=== PATIENT | male | born 2000 | race Caucasian/White ===

== ENCOUNTER 2021-08-23 09:49 | Emergency (ER) | payer OTHER ==
--- NOTE | 2021-08-23 10:44 | ED Physician Documentation ---
PD HPI OPHTHO - Stated complaint Stated Complaint: EYE PX - Chief complaint Chief Complaint: Heent - History obtained from History obtained from: Patient - Additional information Additional information: Patient comes emergency department chief complaint of eye irritation after chemical splashed in the eye. Patient states he was using a synthetic solution at work and it splashed in his eyes. He states there was an eyewash station there and that he spent 15 minutes rinsing his eyes. Patient does not wear contacts or glasses. He states his vision is normal. The incident happened about an hour ago and patient states he still just feels some slight irritation. No redness or drainage. His [employer] at the [employer] asked him to come here. No other complaints at this time. Review of Systems Ten Systems: 10 systems reviewed and negative Constitutional: reports: Reviewed and negative Eyes: reports: Irritation Ears: reports: Reviewed and negative Nose: reports: Reviewed and negative Throat: reports: Reviewed and negative Cardiac: reports: Reviewed and negative Respiratory: reports: Reviewed and negative GI: reports: Reviewed and negative : reports: Reviewed and negative Skin: reports: Reviewed and negative Musculoskeletal: reports: Reviewed and negative Neurologic: reports: Reviewed and negative Psychiatric: reports: Reviewed and negative Endocrine: reports: Reviewed and negative Immunocompromised: reports: Reviewed and negative PD PAST MEDICAL HISTORY - Present Medications Home Medications: Ambulatory Orders Medication Instructions Recorded Confirmed No Known Home Medications 08/23/21 08/23/21 - Allergies Allergies/Adverse Reactions: Allergies Allergy/AdvReac Type Severity Reaction Status Date / Time amoxicillin Allergy Anaphylaxis Verified 08/23/21 09:54 - Social History Does the pt smoke?: No Smoking Status: Never smoker PD ED PE NORMAL - Vitals Vital signs reviewed: Yes - General General: Alert and oriented X 3, No acute distress, Well developed/nourished - HEENT HEENT: Atraumatic, PERRL, EOMI, Moist mucous membranes, Other (No conjunctival injection.) - Neck Neck: Supple, no meningeal sign - Respiratory Respiratory: No respiratory distress - Derm Derm: Warm and dry - Extremities Extremities: No deformity - Neuro Neuro: Alert and oriented X 3 - Psych Psych: Normal mood, Normal affect Results - Vitals Vitals: Oxygen O2 Source Room air PD MEDICAL DECISION MAKING - ED course Complexity details: reviewed results, re-evaluated patient, considered differential, d/w patient ED course: His eyes were very well-appearingAnd he did not have any conjunctival injection or drainage. Fluorescein exam was unremarkable. He was found to have a normal pH. She does not wear contact lenses. I have advised him that he may use saline drops if needed, but otherwise, no specific intervention. We have discussed the usual indications for return. Departure - Departure Disposition: 01 Home, Self Care Clinical Impression: Chemical exposure of eye Condition: Stable Instructions: ED Chemical Conjunctivitis Comments: Your eye looks quite good at this point, am it appears that by washing immediately on the job site, you got all or the vast majority of the chemical you were exposed to out of your eye. There is no evidence of ongoing inflammation, visual compromise, or particulate matter/scratches. At this point in time, you may carry on his usual. You should not put anything into your eye as far as contact lenses for at least 24 hours. Please remember to wear safety goggles when you are using any chemicals at work that may splash. Discharge Date/Time: 08/23/21 10:49
[2021-08-23 10:49] VITALS: BP 130/70
== END 2021-08-23 10:49 | disposition home or self-care (01) ==
LOC: EDSEX → ED 09:49
DX: S05.90XA Unspecified injury of unspecified eye and orbit, initial encounter (principal); Z77.098 Contact with and (suspected) exposure to other hazardous, chiefly nonmedicinal, chemicals; X58.XXXA Exposure to other specified factors, initial encounter
CPT/HCPCS: 99281; 99282

== ENCOUNTER 2023-05-19 01:33 | Outpatient (CLI) | payer SELFPAY | END 2023-05-19 01:34 | disposition critical access hospital (66) | LOC: EMS 01:33 | DX: R45.851 Suicidal ideations (principal) | CPT/HCPCS: A0425; A0429 ==

== ENCOUNTER 2023-05-19 01:51 | Emergency (ER) | payer OTHER ==
--- NOTE | 2023-05-19 01:53 | ED Physician Documentation ---
PD HPI MHE - Stated complaint Stated Complaint: SI - History obtained from History obtained from: Patient - History of Present Illness Primary symptom: Suicidal ideation, Depression Contributing factors: Family - Additional information Additional information: HPI from patient. JIMI. Patient called 911 tonight due to feeling depressed and having suicidal thoughts. Patient indicates to me that he has been feeling increasingly depressed and has had fleeting thoughts of killing himself by jumping off [place], but tonight he got into an argument with his spouse, causing acute worsening of suicidal thoughts. [facility] and [facility] advised him to call 911. Review of Systems Cardiac: reports: Reviewed and negative Respiratory: reports: Reviewed and negative GI: reports: Reviewed and negative Psychiatric: reports: Depressed, Suicidal, Anxiety. denies: Homicidal, Hallucinations, Delusions PD PAST MEDICAL HISTORY - Past Medical History Past Medical History: No - Present Medications Home Medications: Ambulatory Orders Medication Instructions Recorded Confirmed No Known Home Medications 08/23/21 08/23/21 - Allergies Allergies/Adverse Reactions: Allergies Allergy/AdvReac Type Severity Reaction Status Date / Time amoxicillin Allergy Anaphylaxis Verified 05/19/23 02:01 - Social History Does the pt smoke?: No Smoking Status: Never smoker PD ED PE NORMAL - Vitals Vital signs reviewed: Yes - General General: Alert and oriented X 3, Well developed/nourished, Other (tearful, anx ious) - Cardiac Cardiac: RRR, No murmur - Respiratory Respiratory: No respiratory distress, Clear bilaterally - Abdomen Abdomen: Soft, Non tender - Neuro Neuro: Alert and oriented X 3 Eye Opening: Spontaneous Motor: Obeys Commands Verbal: Oriented GCS Score: 15 PD ED PE EXPANDED - Psych Psych: Depressed, Suicidal, Tearful, Anxious Results - Vitals Vitals: Vital Signs - 24 hr 05/19/23 05/19/23 01:58 15:19 Temperature 37.1 C 37.1 C Heart Rate 88 79 Respiratory 18 15 Rate Blood Pressure 130/75 132/73 H O2 Saturation 97 96 Oxygen O2 Source Room air - Labs Labs: Laboratory Tests 05/19/23 05/19/23 05/19/23 02:14 02:14 02:14 WBC 8.8 RBC 5.78 Hgb 15.0 Hct 46.1 MCV 79.8 L MCH 26.0 L MCHC 32.5 RDW 13.6 Plt Count 290 MPV 10.9 Neut # (Auto) 4.6 Lymph # (Auto) 3.1 [place] # (Auto) 0.9 Eos # (Auto) 0.1 Baso # (Auto) 0.0 Absolute Nucleated RBC 0.00 Nucleated RBC % 0.0 Sodium 139 Potassium 3.4 L Chloride 104 Carbon Dioxide 23 Anion Gap 12.0 BUN 8 Creatinine 1.2 Estimated GFR (MDRD) 76 L Glucose 96 Calcium 9.4 Total Bilirubin 0.5 AST 47 H ALT 95 H Alkaline Phosphatase 53 Total Protein 7.2 Albumin 4.7 Globulin 2.5 Albumin/Globulin Ratio 1.9 Lipase 12 TSH 1.62 Urine Color Urine Clarity Urine pH Ur Specific [place] Urine Protein Urine Glucose (UA) Urine Ketones Urine Occult Blood Urine Nitrite Urine Bilirubin Urine Urobilinogen Ur Leukocyte Esterase Ur Microscopic Review Urine Culture Comments Salicylates < 1.5 Urine Opiates Screen Ur Oxycodone Screen Urine Methadone Screen Ur Propoxyphene Screen Acetaminophen < 0 L Ur Barbiturates Screen Ur Tricyclics Screen Ur Phencyclidine Scrn Ur Amphetamine Screen U Methamphetamines Scrn U Benzodiazepines Scrn Urine Cocaine Screen U Cannabinoids Screen Ethyl Alcohol 59.3 SARS-CoV-2 (PCR) 05/19/23 05/19/23 02:20 10:00 WBC RBC Hgb Hct MCV MCH MCHC RDW Plt Count MPV Neut # (Auto) Lymph # (Auto) [place] # (Auto) Eos # (Auto) Baso # (Auto) Absolute Nucleated RBC Nucleated RBC % Sodium Potassium Chloride Carbon Dioxide Anion Gap BUN Creatinine Estimated GFR (MDRD) Glucose Calcium Total Bilirubin AST ALT Alkaline Phosphatase Total Protein Albumin Globulin Albumin/Globulin Ratio Lipase TSH Urine Color YELLOW Urine Clarity CLEAR Urine pH 6.0 Ur Specific [place] 1.010 Urine Protein TRACE Urine Glucose (UA) NEGATIVE Urine Ketones NEGATIVE Urine Occult Blood NEGATIVE Urine Nitrite NEGATIVE Urine Bilirubin NEGATIVE Urine Urobilinogen 0.2 (NORMAL) Ur Leukocyte Esterase NEGATIVE Ur Microscopic Review NOT INDICATED Urine Culture Comments NOT INDICATED Salicylates Urine Opiates Screen NEGATIVE Ur Oxycodone Screen NEGATIVE Urine Methadone Screen NEGATIVE Ur Propoxyphene Screen NEGATIVE Acetaminophen Ur Barbiturates Screen NEGATIVE Ur Tricyclics Screen NEGATIVE Ur Phencyclidine Scrn NEGATIVE Ur Amphetamine Screen NEGATIVE U Methamphetamines Scrn NEGATIVE U Benzodiazepines Scrn NEGATIVE Urine Cocaine Screen NEGATIVE U Cannabinoids Screen NEGATIVE Ethyl Alcohol SARS-CoV-2 (PCR) NOT DETECTED PD Medical Decision Making - ED course Complexity details: reviewed results, re-evaluated patient, considered differential, d/w patient ED course: Brought in by ambulance after he called 911 due to feeling depressed and having suicidal ideation with plan to [place]. No concerning findings on blood tests/urinalysis, patient is medically cleared for a telepsychiatric consult. Telepsychiatrist evaluated patient in the emergency department and recommends inpatient (voluntary) treatment. Per telepsychiatric recommendations, orders for PRN lorazepam and trazodone are entered. Additionally, the telepsychiatrist ordered daily sertraline. Care of patient is turned over to the oncoming emergency department physician (Dr. Mackey) at the end of my shift, pending transfer to appropriate facility for inpatient mental health treatment. Departure - Departure Disposition: 65 Psych Hosp/Unit DC/Xfer Clinical Impression: Suicidal ideation Condition: Good Forms: PCP List
[2023-05-19 02:19] LABS: BASOPHILS % (AUTO) 0.2 %; EOSINOPHILS # (AUTO) 0.1 10^3/uL (0.0-0.7); EOSINOPHILS % (AUTO) 0.9 %; HCT - HEMATOCRIT 46.1 % (42.0-52.0); LYMPHOCYTES # (AUTO) 3.1 10^3/uL (1.5-3.5); LYMPHOCYTES % (AUTO) 35.3 %; MEAN CORPUSCULAR HGB CONC 32.5 g/dL (32.0-36.0); MEAN CORPUSCULAR VOLUME 79.8 fL (80.0-94.0); MEAN PLATELET VOLUME 10.9 fL (7.4-11.4); MONOCYTES # (AUTO) 0.9 10^3/uL (0.0-1.0); MONOCYTES % (AUTO) 10.5 %; NEUTROPHILS # (AUTO) 4.6 10^3/uL (1.5-6.6); NEUTROPHILS % (AUTO) 52.9 %; PLT - PLATELET COUNT 290 10^3/uL (130-450); RED BLOOD COUNT 5.78 10^6/uL (4.70-6.10); RED CELL DISTRIBUTION WIDTH 13.6 % (12.0-15.0); WHITE BLOOD COUNT 8.8 x10^3/uL (4.8-10.8)
[2023-05-19 02:36] LABS: ALBUMIN 4.7 g/dL (3.2-5.5); ALBUMIN/GLOBULIN RATIO 1.9 (1.0-2.2); ALKALINE PHOSPHATASE 53 IU/L (42-121); ALT ALANINE AMINOTRANSFERASE 95 IU/L (10-60); AST ASPARTATE AMINOTRANSFERASE 47 IU/L (10-42); BILIRUBIN,TOTAL 0.5 mg/dL (0.2-1.0); BUN - BLOOD UREA NITROGEN 8 mg/dL (6-20); CALCIUM 9.4 mg/dL (8.5-10.3); CARBON DIOXIDE - CO2 23 mmol/L (21-32); CHLORIDE 104 mmol/L (101-111); CREATININE 1.2 mg/dL (0.6-1.3); ETOH - ETHANOL 59.3 mg/dL; GFR - MDRD 76 (>89); GLUCOSE 96 mg/dL (74-104); LIPASE 12 U/L (11-82); POTASSIUM 3.4 mmol/L (3.5-4.5); SODIUM 139 mmol/L (135-145); TOTAL PROTEIN 7.2 g/dL (6.4-8.9)
[2023-05-19 02:38] LABS: ACETAMINOPHEN < 0 ug/mL (10-30); SALICYLATE < 1.5 mg/dL
[2023-05-19 02:56] LABS: MUDS CUTOFF CONCENTRATIONS CUTOFF CONC BELOW:
[2023-05-19 02:57] LABS: BILIRUBIN,URINE NEGATIVE (NEGATIVE); GLUCOSE, URINE (UA) NEGATIVE (NEGATIVE); KETONES,URINE (UA) NEGATIVE (NEGATIVE); LEUKOCYTE ESTERASE, URINE NEGATIVE (NEGATIVE); NITRITE,URINE NEGATIVE (NEGATIVE); OCCULT BLOOD,URINE NEGATIVE (NEGATIVE); PROTEIN,URINE TRACE mg/dL (NEGATIVE); UROBILINOGEN,URINE 0.2 (NORMAL) E.U./dL (NORMAL)
[2023-05-19 03:03] LABS: CLARITY,URINE CLEAR (CLEAR)
[2023-05-19 03:07] LABS: AMPHETAMINE SCREEN,URINE NEGATIVE (NEGATIVE); BARBITURATE SCREEN,UR NEGATIVE (NEGATIVE); BENZODIAZEPINES SCREEN, URINE NEGATIVE (NEGATIVE); COCAINE SCREEN URINE NEGATIVE (NEGATIVE); METHADONE SCREEN, URINE NEGATIVE (NEGATIVE); METHAMPHETAMINES SCREEN, URINE NEGATIVE (NEGATIVE); OPIATE SCREEN, URINE NEGATIVE (NEGATIVE); OXYCODONE SCREEN, URINE NEGATIVE (NEGATIVE); PROPOXYPHENE SCREEN, URINE NEGATIVE (NEGATIVE); THC CANNABINOID SCREEN, URINE NEGATIVE (NEGATIVE); TRICYCLIC ANTIDEPRESSANT,URINE NEGATIVE (NEGATIVE)
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
[2023-05-19] MEDS: SERTRALINE 25 MG TABLET PO SCH (08:31)
[2023-05-19] MEDS: LORazepam 0.5 MG TABLET PO PRN ×2 (08:31→23:58)
--- NOTE | 2023-05-19 17:43 | ED Physician Documentation ---
ED Addendum - Addendum Addendum: 05/19/23 17:41 The patient has been comfortable and calm through the day. He had been voluntary for looking for transfer to a psychiatric facility. There was issue with his insurance and he did not have coverage at this point. Other facilities are willing to take the patient. At this point the patient is boarding in the emergency department until tomorrow when social work will be able to see him and enroll him for insurance at which point he then would be able to transfer to [facility] who said they would still have a bed available at this that time.
[2023-05-20] MEDS: traZODone 50 MG TABLET PO PRN ×2 (00:06→22:29)
[2023-05-20] MEDS: SERTRALINE 25 MG TABLET PO SCH (09:17)
[2023-05-20 19:11] VITALS: O2SAT 97
[2023-05-20] MEDS: LORazepam 0.5 MG TABLET PO PRN (22:29)
[2023-05-21 06:17] VITALS: BP 111/77
--- NOTE | 2023-05-21 08:38 | ED Physician Documentation ---
ED Addendum - Addendum Addendum: Patient has been boarding in the emergency department awaiting inpatient psychiatric treatment. He was seen by telepsychiatry 2 days ago and started on sertraline 25 mg daily, trazodone 50 mg nightly as needed and Ativan 0.5 mg every 6 hrs as needed.He did receive a dose of Ativan last night as well as the trazodone. 05/21/23 08:38Patient resting comfortably. Says he is feeling a little bit better this morning. States he no longer feels suicidal. Waiting to speak with social work regarding options for today as he understands that inpatient treatment may be difficult with lack of insurance. 05/21/23 11:30 Patient has been seen by social work. He has contracted for his safety. He feels comfortable with outpatient management and his has also been here and is supportive of this plan. I will send a prescription for his new medications. Patient was also provided a work note. He is also advised to return to the ER with any worsening symptoms or any new concerns. Departure - Departure Disposition: 01 Home, Self Care Clinical Impression: Depressive disorder Condition: Stable Instructions: ED Depression Prescriptions: LORazepam [Ativan] 0.5 mg PO Q6H PRN #12 tablet PRN Reason: Anxiety traZODone [Desyrel] 50 mg PO HS PRN #10 tablet PRN Reason: Insomnia Sertraline [Zoloft] 25 mg PO DAILY #30 tablet Comments: Return to the emergency department with any worsening symptoms. I have sent your prescriptions to [facility] in [place]. Please make sure to take your Zoloft daily and Ativan and trazodone as needed. Follow-up with [facility] at [phone] to schedule psychiatric care and counseling. Forms: PCP List, Activity restrictions Discharge Date/Time: 05/21/23 12:14
[2023-05-21] MEDS: SERTRALINE 25 MG TABLET PO SCH (08:43)
== END 2023-05-21 12:14 | disposition home or self-care (01) ==
LOC: EDUNIT# → ED 01:51
DX: R45.851 Suicidal ideations (principal); F32.A Depression, unspecified; Z20.822 Contact with and (suspected) exposure to COVID-19
CPT/HCPCS: 36415; 80053; 80306; 80307; 80320; 80329; 81003; 83690; 84443; 85025; 87635; 90834; 99283; A9270; Q3014; 81001; 87086

== ENCOUNTER 2023-06-27 00:16 | Outpatient (CLI) | payer SELFPAY | END 2023-06-27 23:59 | disposition critical access hospital (66) | LOC: EMS 00:16 | DX: R45.851 Suicidal ideations (principal) | CPT/HCPCS: A0425; A0429 ==

== ENCOUNTER 2023-06-27 00:41 | Emergency (ER) | payer SELFPAY ==
[2023-06-27 00:56] LABS: BILIRUBIN,URINE NEGATIVE (NEGATIVE); GLUCOSE, URINE (UA) NEGATIVE (NEGATIVE); KETONES,URINE (UA) NEGATIVE (NEGATIVE); LEUKOCYTE ESTERASE, URINE NEGATIVE (NEGATIVE); NITRITE,URINE NEGATIVE (NEGATIVE); OCCULT BLOOD,URINE NEGATIVE (NEGATIVE); PROTEIN,URINE 30 mg/dL (NEGATIVE); UROBILINOGEN,URINE 0.2 (NORMAL) E.U./dL (NORMAL)
--- NOTE | 2023-06-27 00:56 | ED Physician Documentation ---
PD HPI MHE - Stated complaint Stated Complaint: SI - Chief complaint Chief Complaint: General - History obtained from History obtained from: Patient - Additional information Additional information: BIBA. HPI from patient. Patient presents for suicidal ideation without specific plan. Patient tells me he has been having depression "for a while", as well as suicidal thoughts without specific plan, also "for a while". He indicates that tonight, he got into a verbal argument with his and this led to his feelings of depression and suicidal ideation becoming acutely worse. He says he got into his car and drove away without any specific destination. He says he eventually "realized I screwed up", and thus returned back home. Patient says that he called 911 upon returning home. He says that he was then transferred over to a suicide hotline. Patient indicates that while he was speaking with someone from the suicide hotline, both the career developer and EMS arrived and encouraged patient to come to ED. Patient tells me that he had been on 3 different medications. 1 was for anxiety 1 for difficulty with sleeping, and a third medication was an antidepressant. Patient says he has "taken a break for a few weeks" from all 3 these medications. Review of Systems Constitutional: reports: Reviewed and negative Cardiac: reports: Reviewed and negative Respiratory: reports: Reviewed and negative GI: reports: Reviewed and negative Psychiatric: reports: Depressed, Suicidal (vague SI, no specific plan, uncertain intent), Anxiety, Insomnia. denies: Homicidal, Hallucinations, Delusions PD PAST MEDICAL HISTORY - Past Medical History Past Medical History: Yes Psych: Depression, Anxiety - Past Surgical History Past Surgical History: No - Present Medications Home Medications: Ambulatory Orders Medication Instructions Recorded Confirmed LORazepam [Ativan] 0.5 mg PO Q6H PRN #12 tablet 05/21/23 Sertraline [Zoloft] 25 mg PO DAILY #30 tablet 05/21/23 traZODone [Desyrel] 50 mg PO HS PRN #10 tablet 05/21/23 - Allergies Allergies/Adverse Reactions: Allergies Allergy/AdvReac Type Severity Reaction Status Date / Time amoxicillin Allergy Anaphylaxis Verified 05/19/23 02:01 - Social History Does the pt smoke?: No Smoking Status: Never smoker Does the pt drink ETOH?: No Does the pt have substance abuse?: No - Immunizations Immunizations are current?: Yes PD ED PE NORMAL - Vitals Vital signs reviewed: Yes - General General: Alert and oriented X 3, No acute distress, Well developed/nourished - HEENT HEENT: PERRL, EOMI - Cardiac Cardiac: RRR, No murmur - Respiratory Respiratory: No respiratory distress, Clear bilaterally - Abdomen Abdomen: Soft, Non tender - Neuro Neuro: Alert and oriented X 3 Eye Opening: Spontaneous Motor: Obeys Commands Verbal: Oriented GCS Score: 15 - Psych Psych: Normal mood, Normal affect Results - Vitals Vitals: Vital Signs - 24 hr 06/27/23 06/27/23 06/27/23 00:45 00:48 05:54 Temperature 36.9 C 36.6 C Heart Rate 100 83 71 Respiratory 20 16 20 Rate Blood Pressure 121/80 126/81 H 128/74 O2 Saturation 96 96 100 06/27/23 07:43 Temperature Heart Rate 71 Respiratory 20 Rate Blood Pressure 105/61 O2 Saturation 95 Oxygen O2 Source Room air - Labs Labs: Laboratory Tests 06/27/23 06/27/23 06/27/23 00:50 01:31 01:31 WBC 9.2 RBC 5.24 Hgb 14.0 Hct 42.0 MCV 80.2 MCH 26.7 L MCHC 33.3 RDW 14.1 Plt Count 256 MPV 11.0 Neut # (Auto) 5.1 Lymph # (Auto) 3.2 [place] # (Auto) 0.8 Eos # (Auto) 0.1 Baso # (Auto) 0.0 Absolute Nucleated RBC 0.00 Nucleated RBC % 0.0 Sodium 139 Potassium 3.4 L Chloride 106 Carbon Dioxide 24 Anion Gap 9.0 BUN 10 Creatinine 1.0 Estimated GFR (MDRD) 93 Glucose 106 H Calcium 9.2 Magnesium 2.0 Total Bilirubin 0.4 AST 33 ALT 66 H Alkaline Phosphatase 56 Total Creatine Kinase 387 H Total Protein 6.4 Albumin 4.3 Globulin 2.1 Albumin/Globulin Ratio 2.0 Lipase 20 TSH 1.46 Urine Color YELLOW Urine Clarity CLEAR Urine pH 6.0 Ur Specific [place] 1.025 Urine Protein 30 H Urine Glucose (UA) NEGATIVE Urine Ketones NEGATIVE Urine Occult Blood NEGATIVE Urine Nitrite NEGATIVE Urine Bilirubin NEGATIVE Urine Urobilinogen 0.2 (NORMAL) Ur Leukocyte Esterase NEGATIVE Urine RBC 0-5 Urine WBC 0-3 Ur Squamous Epith Cells RARE Squamous Urine Bacteria None Seen Urine Casts 0-2 Course Granular Urine Culture Comments NOT INDICATED Salicylates < 1.5 Urine Opiates Screen NEGATIVE Ur Oxycodone Screen NEGATIVE Urine Methadone Screen NEGATIVE Ur Propoxyphene Screen NEGATIVE Acetaminophen < 0.1 Ur Barbiturates Screen NEGATIVE Ur Tricyclics Screen NEGATIVE Ur Phencyclidine Scrn NEGATIVE Ur Amphetamine Screen NEGATIVE U Methamphetamines Scrn NEGATIVE U Benzodiazepines Scrn NEGATIVE Urine Cocaine Screen NEGATIVE U Cannabinoids Screen POSITIVE H Ethyl Alcohol < 10.0 SARS-CoV-2 (PCR) 06/27/23 01:54 WBC RBC Hgb Hct MCV MCH MCHC RDW Plt Count MPV Neut # (Auto) Lymph # (Auto) [place] # (Auto) Eos # (Auto) Baso # (Auto) Absolute Nucleated RBC Nucleated RBC % Sodium Potassium Chloride Carbon Dioxide Anion Gap BUN Creatinine Estimated GFR (MDRD) Glucose Calcium Magnesium Total Bilirubin AST ALT Alkaline Phosphatase Total Creatine Kinase Total Protein Albumin Globulin Albumin/Globulin Ratio Lipase TSH Urine Color Urine Clarity Urine pH Ur Specific [place] Urine Protein Urine Glucose (UA) Urine Ketones Urine Occult Blood Urine Nitrite Urine Bilirubin Urine Urobilinogen Ur Leukocyte Esterase Urine RBC Urine WBC Ur Squamous Epith Cells Urine Bacteria Urine Casts Urine Culture Comments Salicylates Urine Opiates Screen Ur Oxycodone Screen Urine Methadone Screen Ur Propoxyphene Screen Acetaminophen Ur Barbiturates Screen Ur Tricyclics Screen Ur Phencyclidine Scrn Ur Amphetamine Screen U Methamphetamines Scrn U Benzodiazepines Scrn Urine Cocaine Screen U Cannabinoids Screen Ethyl Alcohol SARS-CoV-2 (PCR) NOT DETECTED PD Medical Decision Making - ED course Complexity details: reviewed results, re-evaluated patient, considered differential, d/w patient ED course: Patient is calm and cooperative. He admits to suicidal ideation but he himself is not certain as to the extent of any intention to act on these thoughts. He does not have any specific plan regarding hurting himself. I asked him if he would desire inpatient mental health treatment, and he indicates to me that he is also not certain about this. MHT-oriented labs are acquired and there are no concerning/diagnostic findings on these tests. He is thus medically cleared for a telepsychiatric consult. Patient was evaluated for similar issues 2 months ago in this ED (I was the ED physician on duty when he first presented). At that time, the plan was to admit patient to a voluntary MHE bed at appropriate facility. Unfortunately, after 3 days, there were no beds available throughout that timeframe and he was eventually discharged from the emergency department after being will to contract for safety with confidence. Telepsychiatric consult is pending at the end of my shift and thus care of patient is turned over to oncoming ED physician (Dr. Cadena) at end of my shift. Departure - Departure Forms: PCP List
[2023-06-27 01:08] LABS: BACTERIA,URINE None Seen /HPF (None Seen); CASTS, URINE 0-2 Course Granular /LPF; CLARITY,URINE CLEAR (CLEAR); RBC,URINE 0-5 /HPF (0-5); SQUAMOUS EPITHELIAL CELL,UR RARE Squamous (<= Few); WBC,URINE 0-3 /HPF (0-3)
[2023-06-27 01:09] LABS: AMPHETAMINE SCREEN,URINE NEGATIVE (NEGATIVE); BARBITURATE SCREEN,UR NEGATIVE (NEGATIVE); BENZODIAZEPINES SCREEN, URINE NEGATIVE (NEGATIVE); COCAINE SCREEN URINE NEGATIVE (NEGATIVE); METHADONE SCREEN, URINE NEGATIVE (NEGATIVE); METHAMPHETAMINES SCREEN, URINE NEGATIVE (NEGATIVE); OPIATE SCREEN, URINE NEGATIVE (NEGATIVE); OXYCODONE SCREEN, URINE NEGATIVE (NEGATIVE); PROPOXYPHENE SCREEN, URINE NEGATIVE (NEGATIVE); THC CANNABINOID SCREEN, URINE POSITIVE (NEGATIVE); TRICYCLIC ANTIDEPRESSANT,URINE NEGATIVE (NEGATIVE)
[2023-06-27 01:35] LABS: BASOPHILS % (AUTO) 0.2 %; EOSINOPHILS # (AUTO) 0.1 10^3/uL (0.0-0.7); EOSINOPHILS % (AUTO) 1.1 %; LYMPHOCYTES # (AUTO) 3.2 10^3/uL (1.5-3.5); LYMPHOCYTES % (AUTO) 35.2 %; MEAN CORPUSCULAR HEMOGLOBIN 26.7 pg (27.0-31.0); MEAN CORPUSCULAR HGB CONC 33.3 g/dL (32.0-36.0); MEAN CORPUSCULAR VOLUME 80.2 fL (80.0-94.0); MONOCYTES # (AUTO) 0.8 10^3/uL (0.0-1.0); MONOCYTES % (AUTO) 8.1 %; NEUTROPHILS # (AUTO) 5.1 10^3/uL (1.5-6.6); PLT - PLATELET COUNT 256 10^3/uL (130-450); RED BLOOD COUNT 5.24 10^6/uL (4.70-6.10); RED CELL DISTRIBUTION WIDTH 14.1 % (12.0-15.0); WHITE BLOOD COUNT 9.2 x10^3/uL (4.8-10.8)
[2023-06-27 01:49] LABS: ALBUMIN 4.3 g/dL (3.2-5.5); ALKALINE PHOSPHATASE 56 IU/L (42-121); ALT ALANINE AMINOTRANSFERASE 66 IU/L (10-60); AST ASPARTATE AMINOTRANSFERASE 33 IU/L (10-42); BILIRUBIN,TOTAL 0.4 mg/dL (0.2-1.0); BUN - BLOOD UREA NITROGEN 10 mg/dL (6-20); CALCIUM 9.2 mg/dL (8.5-10.3); CARBON DIOXIDE - CO2 24 mmol/L (21-32); CHLORIDE 106 mmol/L (101-111); CK- CREATINE KINASE 387 IU/L (30-223); ETOH - ETHANOL < 10.0 mg/dL; GFR - MDRD 93 (>89); GLUCOSE 106 mg/dL (74-104); LIPASE 20 U/L (11-82); POTASSIUM 3.4 mmol/L (3.5-4.5); SODIUM 139 mmol/L (135-145); TOTAL PROTEIN 6.4 g/dL (6.4-8.9)
[2023-06-27 01:50] LABS: ACETAMINOPHEN < 0.1 ug/mL
[2023-06-27 01:51] LABS: SALICYLATE < 1.5 mg/dL
[2023-06-27 02:04] LABS: THYROID STIMULATING HORMONE 1.46 uIU/mL (0.34-5.60)
--- NOTE | 2023-06-27 06:42 | TELEPSYCH PHYS NOTE ---
[facility] Telepsych Consult Consult Date: 06/27/23 Name of Referring Provider:: ED Provider Reason for Consult: suicidal ideation - Suicide Risk Sreening (ASQ Tool) In the past few weeks, have you wished you were ?: Yes In the past few weeks, have you felt that you or your family would be better off if you were ?: Yes In the past week, have you been having thoughts about killing yourself?: Yes Have you ever tried to kill yourself?: Yes - Assessment Language: Dominican Environmental Technical Officer Required: No Cultural, Oriental Orthodox or Spiritual Preferences: unknown Chief Complaint: "For the most part I have been having a terrible year and time.... History of Present Illness: Patient is a 23 year old male with a history of anxiety and depression who presents to the ED for evaluation of suicidal thoughts. "I lost my job in the [employer], got into a lot of debt and having trouble with my relationship with my . Pt states "I had an argument and aftterwards I felt really depressed and I started feeling really manic and I was just thinking of killing myself throughout the whole day." Patient states he called the fur buyer; they brought him to the hospital. Patient with a history of cutting himself. He has "not yet" cut himself with the intent of ending his life. He states he feels "anxious, tired, horrible...." He states he sleeps at most 2-3 hours and there are days when he does not eat. He does not currently see an outpatient psychiatrist or therapist. Suicide Ideation - Homicide Ideation - Self Harm: recent SI; "I thought of jumping off a bridge or standing in the road and getting hit by a car..." Psychiatric History - Treatment History: does not currently see a psychiatrist or therapist; no history of psychiatric hospitalizations Family Psych History/ History of suicide: none known - Medication & Allergies Home Medications: Ambulatory Orders Medication Instructions Recorded Confirmed LORazepam [Ativan] 0.5 mg PO Q6H PRN #12 tablet 05/21/23 Sertraline [Zoloft] 25 mg PO DAILY #30 tablet 05/21/23 traZODone [Desyrel] 50 mg PO HS PRN #10 tablet 05/21/23 Allergies/Adverse Reactions: Allergies Allergy/AdvReac Type Severity Reaction Status Date / Time amoxicillin Allergy Anaphylaxis Verified 05/19/23 02:01 - Drug & Alcohol History Does patient have Drug/ETOH history or addictive behavior?: Yes Use: Uses substance without health or social issues: Alcohol, Cannabis Abuse: Recurrent use of substance despite neg consequences: NONE Dependence: Experiences withdrawal or developed tolerances: NONE, Methadone - Trauma Does the patient have a history of trauma, abuse, neglect or explotation?: Yes History of trauma, abuse, neglect, or exploitation (Notes): family trauma, dad leaving, "stuff that happened to me in my childhood..." - Personal Information Does the patient have a history or present tendencies for violence?: None Legal Charges or Investigations (Notes): "accusations of assault" Environment & Living Situation - Social, Peer-Group (Note): At home Environment & Living Situation - Social, Peer-Group (Notes): lives with , no kids Marital Status - Family Circumstances: Stressors - Financial Concerns: lost job Occupation: works in a smart[employer] for an [employer]; left [employer] bc of mental - Medical History Psychiatric: reports: Depression, Anxiety - Mental Status Exam Appearance and Attire: fair grooming, in hospital scrubs Attitude and Behavior: calm, cooperative Speech: regular rate, low volume Affect and Mood: "depressed" congruent Association and Thought Process: linear goal directed Thought Content: +SI plan to jump off of a bridge or health services coordinator traffic Perception: denies AH or VH Sensorium, memory and orientation: awake, alert, oriented Intellectual - Cognitive functioning: average Insight and Judgement: fair Emotional and Behavioral Functioning: limited Ability to Self-Care: fair - Personal Goals Short-term Goals: feel better - Risk/Protective Factors Risk Factors: Trigger events leading to humiliation, shame and/or despair, Perceived burden on other Protective Factors / Internal: N/A Protective Factors / External: Engaged in work or school - Plan Impression/Risk Assessment: Scott is a 23 year old male who presents to the ED after calling police. Patient reports increasing stress, anxiety and depression. He has not been taking his medications and has had increasing suicidal thoughts with plan to jump off of a bridge or step in front of traffic. Patient is agreeable to voluntary inpatient hospitalization for safety and stabilization. Treatment - Therapy Recommendations: supportive Pharmacological Recommendations: restart previous home meds (Trazodone, Zoloft, Ativan prn) - Time Spent & Provider Location Telepsych consultation conducted via videoconferencing: Yes List names and roles of persons who participated in consult: Ruthy Light MD; Patient Telepsych Provider Location: [place], [place] Time Spent (Minutes): 50
[2023-06-27] MEDS ORDERED: traZODone 50 MG TABLET PO PRN (07:15)
[2023-06-27] MEDS ORDERED: LORazepam 0.5 MG TABLET PO PRN (07:16)
[2023-06-27] MEDS ORDERED: SERTRALINE 25 MG TABLET PO SCH (09:00)
[2023-06-27] MEDS ORDERED: SODIUM CHLORIDE 0.9% 1,000 ML IV STA (11:18)
--- NOTE | 2023-06-27 13:52 | ED Physician Documentation ---
ED Addendum - Addendum Addendum: Patient received in signout from overnight physician. Patient has been seen by telepsychiatry and is voluntary for inpatient treatment. I did order his home medications at the recommendation of the telepsychiatrist. Patient has been evaluated [facility]. They are requesting a repeat CK level. Initial CK was 380. Repeat is slightly increased. Clinically patient is well-appearing and I do not think he has symptoms or lab results that suggest rhabdomyolysis. However psychiatric facility would like to see this level coming down so IV fluids have been ordered. 3rd CK level is 403. Slightly lower than prior.Again do not feel like the CK level is clinically significant. He has been accepted to [facility]. COBRA's have been signed. Patient has been calm and cooperative this morning with family member at bedside. He has not been ambulatory. Departure - Departure Disposition: [facility] Psych Hosp/Unit DC/Xfer Clinical Impression: Suicidal ideation Condition: Stable Forms: PCP List
[2023-06-27 16:47] VITALS: BP 132/78; O2SAT 97
== END 2023-06-27 16:54 ==
LOC: EDUNIT# → ED 00:41
DX: R45.851 Suicidal ideations (principal); F32.A Depression, unspecified; F41.9 Anxiety disorder, unspecified; Z20.822 Contact with and (suspected) exposure to COVID-19
CPT/HCPCS: 36415; 80053; 80306; 80307; 80320; 80329; 81001; 82550; 83690; 83735; 84443; 85025; 87635; 90834; 99283; 99285; A9270; Q3014; 87086